=== PATIENT | male | born 1970 | race Caucasian/White ===

== ENCOUNTER 2024-04-23 14:12 | Emergency (ER) | payer MEDICAID ==
[~2024-04-23] VITALS: Ht 172.7 cm; Wt 97.7 kg
[2024-04-23 14:20] VITALS: BP 121/73; PULSE 84; RESP 18; TEMP 98.6
[2024-04-23] MEDS: KETOROLAC TROMETHAMINE 30 MG/ML VIAL IM ONE (18:08)
[2024-04-23] MEDS: ACETAMINOPHEN 325 MG TABLET PO ONE (18:08)
== END 2024-04-23 19:22 | disposition home or self-care (01) ==
LOC: EMS 14:12
DX: M25.521 Pain in right elbow (principal)
CPT/HCPCS: 99283; 73080; 96372; J1885

== ENCOUNTER 2025-04-06 16:46 | Emergency (ER) | payer MEDICAID, OTHER ==
[~2025-04-06] VITALS: Ht 180.3 cm; Wt 116.0 kg
[2025-04-06 17:18] VITALS: TEMP 98.2
[2025-04-06] MEDS ORDERED: BICT1TAB PO (19:36)
[2025-04-06] MEDS: KETOROLAC TROMETHAMINE 30 MG/ML VIAL IM ONE (19:55)
[2025-04-06] MEDS: LIDOCAINE 5% TRANSDERMAL PATCH TD ONE (19:55)
[2025-04-06 22:30] VITALS: BP 121/74; PULSE 71; RESP 18; O2SAT 99
[2025-04-06] MEDS ORDERED: TRAM50TA5 PO (22:32)
[2025-04-06] MEDS ORDERED: LIDO-57 TP (22:32)
== END 2025-04-06 22:50 | disposition home or self-care (01) ==
LOC: EMS 16:46
DX: M79.18 Myalgia, other site (principal); M54.50 Low back pain, unspecified; Z79.899 Other long term (current) drug therapy
CPT/HCPCS: 99283; 72100; 96372; J1885